=== PATIENT | male | born 1975 | race Caucasian/White ===

== ENCOUNTER 2016-08-05 12:06 | Emergency (ER) | payer OTHER ==
[2016-08-05] MEDS ORDERED: NS 1,000 ML IV ONE (13:47)
[2016-08-05] MEDS ORDERED: ONDANSETRON 4 MG/2 ML VIAL IVP ONE (13:48)
[2016-08-05 14:30] LABS: % IMMATURE GRANULYOCYTES 0.2 % (0.0-1.1); ABSOLUTE IMMATURE GRANULOCYTES 0.03 10^3/uL (0.00-0.10); ADD DIFF? NO; ADD MORPH? NO; ADD SCAN? NO; ATYPICAL LYMPHOCYTE FLAG 10 (0-99); FRAGMENT RBC FLAG 0 (0-99); HEMATOCRIT 43.7 % (40.0-51.0); HEMOGLOBIN 15.4 g/dL (13.7-17.5); LEFT SHIFT FLG 0 (0-99); LIPEMIA HEMOLYSIS FLAG 90 (0-99); MEAN CELL HEMOGLOBIN 31.2 pg (27.9-34.1); MEAN CELL HEMOGLOBIN CONCENTR. 35.2 g/dL (32.4-36.7); MEAN CELL VOLUME 88.5 fL (81.5-99.8); MEAN PLATELET VOLUME 9.1 fL (8.7-11.7); PLATELET CLUMPS FLAG 10 (0-99); PLATELET COUNT 344 10^3/uL (150-400); RED BLOOD CELL COUNT 4.94 10^6/uL (4.40-6.38); RED CELL DISTRIBUTION WIDTH 13.4 % (11.5-15.2)
[2016-08-05 14:47] LABS: ALANINE AMINOTRANSFERASE 20 IU/L (21-72); ALKALINE PHOSPHATASE 51 IU/L (38-126); ANION GAP 12 mEq/L (8-16); ASPARTATE AMINOTRANSFERASE 22 IU/L (17-59); BILIRUBIN,TOTAL 0.6 mg/dL (0.1-1.4); CALCIUM 9.3 mg/dL (8.5-10.4); CARBON DIOXIDE 25 mEq/l (22-31); CHLORIDE 100 mEq/L (97-110); CREATININE 0.8 mg/dL (0.7-1.3); GLOMERULAR FILTRATION RATE > 60; GLUCOSE 100 mg/dL (70-100); POTASSIUM 4.3 mEq/L (3.5-5.2); SODIUM 137 mEq/L (134-144)
[2016-08-05] MEDS ORDERED: MAALOX/HYOSC GI COCKTAIL 45 ML BOTTLE PO ONE (15:01)
--- NOTE | 2016-08-05 15:12 | CPEKG ---
Heart Rate: 78 RR Interval: 769 P-R Interval: 184 QRSD Interval: 114 QT Interval: 376 QTC Interval: 429 P [place]: 66 QRS [place]: -20 T Wave [place]: 48 EKG Severity - ABNORMAL ECG - EKG Impression: SINUS ARRHYTHMIA, RATE 70-82 EKG Impression: PROBABLE LEFT ATRIAL ABNORMALITY EKG Impression: NONSPECIFIC INTRAVENTRICULAR CONDUCTION DELAY Electronically Signed By: Darius Duggan 05-Aug-2016 15:40:46
--- NOTE | 2016-08-05 15:27 | UCPHY ---
H & P Patient Type: Established Chief Complaint Nursing Narrative: c/o mid abd pain/ burning since for last 4 hrs- not eaten yet today- normal routinelast night- denies trauma- vomited X 1 - normal BM this am Time Seen by Provider: 08/05/16 13:41 HPI/ROS: This patient reports gradual onset of epigastric pain this morning 4 hours prior to arrival the describes as crampy and sharp in nature radiating to his back. Peak intensity 8/10. He notes no exacerbating factors. He reports 1 episode of emesis that appeared brown in color to him. He has ongoing nausea currently. He did not have breakfast this morning because he felt lack of appetite prior to the onset of the pain and vomiting. He notes no other exacerbating factors for his pain. It is not positional. He has had pancreatitis in the past and ulcer he reports that this pain feels a little different than both of those presentations. However, he is unable to describe how it feels different. Patient does report that he has been taking ibuprofen 4 -6 tablets a day last couple days from musculoskeletal pain. ROS: No fevers or chills. No other constitutional symptoms HEENT: No complaints pulmonary: No shortness of breath or recent coughing. Cardiovascular: No lightheadedness. He reports no pulsatile pain. No heart palpitations. He denies any lower extremity swelling. GI: No coffee-ground emesis. He reports normal bowel movements. No dark tarry stool. : No dysuria. No hematuria. Integumentary: No complaints 10 point ROS is otherwise negative. Source: Patient Exam Limitations: No limitations - Medical/Surgical History PMH: Prior pancreatitis that was alcohol related. Sober from alcohol for the past 7 months. Gastritis Ulcer Hx Asthma: No Hx Chronic Respiratory Disease: No Hx Diabetes: No Hx Cardiac Disease: No Hx Renal Disease: No Hx Cirrhosis: No Hx Alcoholism: No Hx HIV/AIDS: No Hx Splenectomy or Spleen Trauma: No Other PMH: pleural effusion , ETOH, neuropathy, GERD - Family History Significant Family History: No pertinent family hx - Social History Smoking Status: Current every day smoker Alcohol Use: Sober Drug Use: None - Physical Exam Exam: General Appearance: Alert, no distress. Eyes: Pupils equal and round no pallor or injection. ENT, Mouth: Mucous membranes moist. Respiratory: There are no retractions, lungs are clear to auscultation. Cardiovascular: Regular rate and rhythm. No murmur gallop rub. No peripheral edema. Gastrointestinal: Normoactive to slightly hyperactive bowel sounds with moderate epigastric tenderness that reproduces his symptoms in part. Back: No CVA tenderness Rectal exam: No external hemorrhoids. Brown stool heme-negative on Hemoccult testing Neurological: Alert with no focal deficits. Skin: Warm and dry, no rashes. No diaphoresis. Musculoskeletal: Neck is supple nontender. Extremities are symmetrical, full range of motion. Psychiatric: Alert with no focal deficits DIFFERENTIAL DIAGNOSIS: After history and physical exam differential diagnosis was considered for gastritis, ulcer, pancreatitis, drug-seeking, cholecystitis, Constitutional: Initial Vital Signs Temperature (C) 36.6 C 08/05/16 12:39 Heart Rate 60 08/05/16 12:39 Respiratory Rate 18 08/05/16 12:39 Blood Pressure 137/82 H 08/05/16 12:39 O2 Sat (%) 97 08/05/16 12:39 O2 Delivery Mode Room Air Allergies/Adverse Reactions: No Known Allergies Allergy (Verified 03/30/15 17:20) Home Medications: Medication Instructions Recorded Prilosec 03/30/15 Amlodipine Besylate 08/05/16 GABAPENTIN 08/05/16 Ondansetron Odt [Zofran Odt] 4 - 8 mg PO Q4PRN PRN #4 tab 08/05/16 Pantoprazole Sodium [Protonix 40mg 40 mg PO DAILY #30 tab 08/05/16 (*)] Pantoprazole Sodium [Protonix 40mg 40 mg PO DAILY #30 tab 08/05/16 (*)] Medical Decision Making - Diagnostics EKG Interpretation: 12 lead EKG performed at 3:10 p.m. reveals sinus rhythm at 78 Intervals: Normal throughout [place]: Normal throughout Overall assessment sinus rhythm with nonspecific interventricular conduction delay. Please refer to trace master for complete read. Imaging: Throughout the abdomen: No free air. Normal nonspecific bowel gas pattern chest x-ray appears normal by my interpretation ED Course/Re-evaluation: IV, normal saline bolus Zofran with resolution of nausea 4 mg of morphine with relief of pain for 2 hours or so and he reports recurrence of pain. Treated with a GI cocktail without relief. The patient complained of ongoing pain treated with Levsin followed by Reecelan with Benadryl I explained the patient I am reluctant to give him further opiate narcotics given his history of alcohol abuse. Also, no findings after workup to suggest cholecystitis, hepatitis, significant pancreatitis. At 4:00 p.m. with ongoing symptoms 3-way of the abdomen for further evaluation. Reglan and Benadryl for pain nausea given IV at 4:15 p.m. Patient claims to have ongoing significant pain and wants to go the emergency department for further evaluation. Discussion: Patient has benign workup here so far the exception of a borderline lipase. He may have an element of chronic pancreatitis or early pancreatitis causing his symptoms but no evidence other significant abnormalities. He he may warrant an ultrasound for further evaluation of biliary system and our pipe setter is not currently here. Patient requests [facility] for further workup because he lives in the area does not want to go to [place]. I spoke with [facility]- pt. accepted for x-tate by Dr. Andrade - Data Points Laboratory Results: Laboratory Results 08/05/16 14:18 08/05/16 14:18 08/05/16 08/05/16 15:55 14:18 WBC 12.02 H 10^3/uL (3.80-9.50) RBC 4.94 10^6/uL (4.40-6.38) Hgb 15.4 g/dL (13.7-17.5) Hct 43.7 % (40.0-51.0) MCV 88.5 fL (81.5-99.8) MCH 31.2 pg (27.9-34.1) MCHC 35.2 g/dL (32.4-36.7) RDW 13.4 % (11.5-15.2) Plt Count 344 10^3/uL (150-400) MPV 9.1 fL (8.7-11.7) Neut % (Auto) 74.4 H % (39.3-74.2) Lymph % (Auto) 18.1 % (15.0-45.0) [place] % (Auto) 5.9 % (4.5-13.0) Eos % (Auto) 1.2 % (0.6-7.6) Baso % (Auto) 0.2 L % (0.3-1.7) Nucleat RBC Rel Count 0.0 % (0.0-0.2) Absolute Neuts (auto) 8.92 H 10^3/uL (1.70-6.50) Absolute Lymphs (auto) 2.18 10^3/uL (1.00-3.00) Absolute Monos (auto) 0.71 10^3/uL (0.30-0.80) Absolute Eos (auto) 0.15 10^3/uL (0.03-0.40) Absolute Basos (auto) 0.03 10^3/uL (0.02-0.10) Absolute Nucleated RBC 0.00 10^3/uL (0-0.01) Immature Gran % 0.2 % (0.0-1.1) Immature Gran # 0.03 10^3/uL (0.00-0.10) Sodium 137 mEq/L (134-144) Potassium 4.3 mEq/L (3.5-5.2) Chloride 100 mEq/L (97-110) Carbon Dioxide 25 mEq/l (22-31) Anion Gap 12 mEq/L (8-16) BUN 10 mg/dL (7-23) Creatinine 0.8 mg/dL (0.7-1.3) Estimated GFR > 60 Glucose 100 mg/dL (70-100) Calcium 9.3 mg/dL (8.5-10.4) Total Bilirubin 0.6 mg/dL (0.1-1.4) AST 22 IU/L (17-59) ALT 20 L IU/L (21-72) Alkaline Phosphatase 51 IU/L (38-126) Total Protein 7.0 g/dL (6.3-8.2) Albumin 4.0 g/dL (3.5-5.0) Lipase 304.0 H IU/L (23-300) Stool Occult Bld Scrn NEGATIVE (NEGATIVE) Medications Given: Discontinued Medications Diphenhydramine HCl (Benadryl Injection) 25 mg IVP EDNOW ONE Stop: 08/05/16 15:53 Last Admin: 08/05/16 16:25 Dose: 25 mg Hyoscyamine Sulfate (Levsin, Hyomax-Sl) 0.125 mg PO EDNOW ONE Stop: 08/05/16 15:37 Last Admin: 08/05/16 15:43 Dose: 0.125 mg Sodium Chloride (Ns) 1,000 mls @ 0 mls/hr IV ONCE ONE PRN Reason: Wide Open Stop: 08/05/16 13:48 Last Admin: 08/05/16 13:05 Dose: 1,000 mls Metoclopramide HCl (Reglan Injection) 10 mg IVP EDNOW ONE Stop: 08/05/16 15:53 Last Admin: 08/05/16 16:27 Dose: 10 mg Miscellaneous Medication (Gi Cocktail(No Lido)) 45 ml PO EDNOW ONE Stop: 08/05/16 15:02 Last Admin: 08/05/16 15:05 Dose: 45 ml Morphine Sulfate (Morphine) 4 mg IVP EDNOW ONE Stop: 08/05/16 13:49 Last Admin: 08/05/16 14:16 Dose: 4 mg Ondansetron HCl (Zofran) 4 mg IVP EDNOW ONE Stop: 08/05/16 13:49 Last Admin: 08/05/16 14:05 Dose: 4 mg Departure - Departure Disposition: Home, Routine, Self-Care Clinical Impression: Gastritis Qualifiers: Gastritis type: unspecified gastritis Chronicity: acute Gastritis bleeding: without bleeding Qualifier Code: (K29.00) Acute gastritis without bleeding Condition: Good Instructions: Acute Nausea and Vomiting (ED), Gastritis (ED) Additional Instructions: Diagnosis: 1. Gastritis 2. Vomiting Plan: Go directly to [facility] Emergency Department for further evaluation. Nothing to eat or drink on the way. Quit smoking Protonix 40 mg a day or Prilosec 40 mg a day as necessary christian Zofran for nausea vomiting Maalox in addition as needed for symptoms Follow up with Gastroenterology or primary care physician for any ongoing symptoms despite treatment plan Referrals: Darius Graves MD [Primary Care Provider] - As per Instructions Raghu Guo MD [Medical Doctor] - As per Instructions Prescriptions: Pantoprazole Sodium [Protonix 40mg (*)] 40 mg PO DAILY #30 tab Pantoprazole Sodium [Protonix 40mg (*)] 40 mg PO DAILY #30 tab Ondansetron Odt [Zofran Odt] 4 - 8 mg PO Q4PRN PRN #4 tab PRN Reason: Vomiting - PQRS PQRS Measurement: NA
[2016-08-05] MEDS ORDERED: HYOSCYAMINE SULFATE 0.125 MG TAB PO ONE (15:36)
[2016-08-05] MEDS ORDERED: METOCLOPRAMIDE 10 MG/2 ML VIAL IVP ONE (15:52)
--- NOTE | 2016-08-05 16:27 | DX ---
Abdomen 3 View w CXR epigastric pain Findings: Bowel gas pattern is nonspecific in features, without evidence of obstruction. There are calcifications identified to the right of the L1 vertebral body, which may be present withi n the lumen of the transverse colon or may be associated with the upper pole of the right kidney or t he head of the pancreas. These could be further characterized with CT as clinically appropriate. [place] calcifications are present to the left of the T12 spinous process. Single view chest is unremarkable. Impression: 1. Nonspecific bowel gas pattern without features of obstruction. 2. Calcifications in the upper abdomen bilaterally, potentially related to calcific pancreatitis, int raluminal calcification within the transverse colon, or renal calcifications. CT of the abdomen would be of benefit in further evaluation as clinically appropriate.
[2016-08-05 17:51] VITALS: BP 129/87; PULSE 65; RESP 16; TEMP 99.3; O2SAT 96
== END 2016-08-05 17:45 | disposition home or self-care (01) ==
LOC: CED 12:06
DX: K29.00 Acute gastritis without bleeding (principal); R11.10 Vomiting, unspecified; K21.9 Gastro-esophageal reflux disease without esophagitis; F17.200 Nicotine dependence, unspecified, uncomplicated
CPT/HCPCS: 74022-PO; 80053-PO; 82270-PO; 83690-PO; 85025-PO; 96361-PO; 96374-PO; 96375-PO; G0463-PO; J1200; J2405; J2765